=== PATIENT | female | born 1990 | race Caucasian/White ===

== ENCOUNTER 2017-10-06 11:27 | Inpatient (IN) | payer MEDICAID, OTHER ==
[~2017-10-06] VITALS: Ht 167.6 cm; Wt 50.0 kg
[2017-10-06] MEDS ORDERED: HYDROcodone/acetaminophen 10/325mg tab PO ONE (13:15)
[2017-10-06] MEDS ORDERED: ibuprofen tablet 400 MG TABLET PO ONE (13:15)
[2017-10-06] MEDS ORDERED: vancomycin/NS 1 GM ADD-VANTAGE 250 ML IV ONE (14:35)
[2017-10-06 15:19] LABS: BASOPHILS % (AUTO) 0.2 % (0-1); EOSINOPHILS # (AUTO) 0.4 X10'3 (0-0.9); EOSINOPHILS % (AUTO) 3.3 % (0-6); HEMATOCRIT 37.4 % (35.0-45.0); HEMOGLOBIN 12.6 g/dl (12.0-16.0); LYMPHOCYTES # (AUTO) 2.7 X10'3 (1.1-4.8); LYMPHOCYTES % (AUTO) 22.7 % (21-51); MEAN CORPUSCULAR HEMOGLOBIN 28.4 PG (27.0-31.0); MEAN CORPUSCULAR HGB CONC 33.7 % (33.0-36.5); MEAN CORPUSCULAR VOLUME 84.3 FL (78-98); MEAN PLATELET VOLUME 7.8 FL (7.4-10.4); MONOCYTES % (AUTO) 8.6 % (2-12); NEUTROPHILS # (AUTO) 7.8 X10'3 (1.8-7.7); NEUTROPHILS % (AUTO) 65.2 % (42-75); PLATELET COUNT 225 X10'3 (140-440); RED BLOOD COUNT 4.44 X10'6 (4.20-5.60); RED CELL DISTRIBUTION WIDTH 14.9 % (11.5-14.5)
[2017-10-06 15:37] LABS: ALANINE AMINOTRANSFERASE 19 U/L (12-78); ALBUMIN 3.4 G/DL (3.4-5.0); ALBUMIN/GLOBULIN RATIO 0.9 (1.1-1.5); ALKALINE PHOSPHATASE 63 IU/L (46-116); ANION GAP 6 (8-16); ASPARTATE AMINO TRANSFERASE 10 U/L (10-37); BILIRUBIN,TOTAL 0.1 MG/DL (0.1-1.0); BLOOD UREA NITROGEN 14 MG/DL (7-18); CALCIUM 8.7 MG/DL (8.5-10.1); CHLORIDE 101 MMOL/L (99-107); CREATININE 0.61 MG/DL (0.40-0.90); GLUCOSE 95 MG/DL (70-104); POTASSIUM 4.2 MMOL/L (3.5-5.1); SODIUM 137 MMOL/L (135-145); TOTAL CARBON DIOXIDE 29.6 MMOL/L (24-32); TOTAL PROTEIN 7.3 G/DL (6.4-8.2); eGFR > 90 ML/MIN
[2017-10-06] MEDS ORDERED: acetaminophen 650mg rectal suppository RC PRN (15:55)
[2017-10-06] MEDS ORDERED: acetaminophen 325mg tablet PO PRN ×2 (15:55)
[2017-10-06] MEDS ORDERED: HYDROmorphone inj. 0.5 MG/0.5 ML DISP.SYRIN IV PRN ×2 (15:55)
[2017-10-06] MEDS ORDERED: ondansetron/PF 4mg/2ml inj IV PRN (15:55)
[2017-10-06] MEDS ORDERED: diphenhydrAMINE 50 mg/ml inj IV PRN (15:55)
[2017-10-06] MEDS ORDERED: HYDROcodone/acetaminophen 5mg/325mg tablet PO PRN (15:55)
[2017-10-06] MEDS ORDERED: diphenhydrAMINE 25mg capsule PO PRN (15:55)
[2017-10-06] MEDS ORDERED: metoclopramide 5 mg/ml inj IV PRN (15:55)
[2017-10-06] MEDS ORDERED: morphine 4 MG/ML inj SYRINge IV PRN (15:55)
[2017-10-06] MEDS ORDERED: bisacodyl 10mg suppository rectal RC PRN (15:55)
[2017-10-06] MEDS ORDERED: mag hydrox/Alum hydrox/simeth 30ml oral suspension PO PRN (15:55)
[2017-10-06] MEDS ORDERED: magnesium hydroxide 30ml (MOM) UD suspension PO PRN (15:55)
[2017-10-06] MEDS ORDERED: tetanus & diphtheria toxoid (Td) vaccine 0.5ml IMVAC ONE (15:55)
[2017-10-06] MEDS ORDERED: TETanus/Pertussis (Acell)/Diphther VAC/PF (Tdap-Adult) 0.5ml syringe IMVAC ONE (16:10)
[2017-10-06] MEDS: ceFAZolin 1GM/D5W- ADD-VANTAGE 50 ML IV SCH (16:32)
[2017-10-06 17:24] LABS: MAGNESIUM 1.9 MG/DL (1.5-2.4)
[2017-10-06] MEDS ORDERED: NO HOME MEDS (17:28)
[2017-10-06] MEDS: HYDROcodone/acetaminophen 10/325mg tab PO PRN ×2 (17:31→21:31)
[2017-10-06] MEDS ORDERED: HYDROmorphone 1 mg/ml syringe IV PRN (17:50)
[2017-10-06 17:56] VITALS: BP 104/63
[2017-10-06] MEDS: nicotine 21mg patch - 24 hr TD SCH (19:50)
[2017-10-06] MEDS: morphine 4 MG/ML inj SYRINge IV PRN (19:52)
[2017-10-06] MEDS: docusate sod 100mg capsule PO SCH (19:52)
[2017-10-06] MEDS: heparin, porcine 5000 units/ml vial SQ SCH (19:53)
[2017-10-06 20:00] VITALS: BP 112/59
[2017-10-06] MEDS: HYDROmorphone 1 mg/ml syringe IV PRN (22:48)
[2017-10-07] VITALS: BP 127/79
[2017-10-07] MEDS: ceFAZolin 1GM/D5W- ADD-VANTAGE 50 ML IV SCH ×4 (00:37→23:57)
[2017-10-07] MEDS: HYDROcodone/acetaminophen 10/325mg tab PO PRN ×4 (02:04→16:41)
[2017-10-07 05:01] VITALS: BP 124/79
[2017-10-07] MEDS: HYDROmorphone 1 mg/ml syringe IV PRN ×3 (05:03→14:10)
[2017-10-07 05:47] LABS: BASOPHILS % (AUTO) 0.2 % (0-1); EOSINOPHILS # (AUTO) 0.3 X10'3 (0-0.9); EOSINOPHILS % (AUTO) 2.9 % (0-6); HEMATOCRIT 37.7 % (35.0-45.0); HEMOGLOBIN 12.6 g/dl (12.0-16.0); LYMPHOCYTES # (AUTO) 1.4 X10'3 (1.1-4.8); LYMPHOCYTES % (AUTO) 14.1 % (21-51); MEAN CORPUSCULAR HEMOGLOBIN 28.4 PG (27.0-31.0); MEAN CORPUSCULAR HGB CONC 33.5 % (33.0-36.5); MEAN CORPUSCULAR VOLUME 84.5 FL (78-98); MEAN PLATELET VOLUME 8.1 FL (7.4-10.4); MONOCYTES # (AUTO) 0.6 X10'3 (0-0.9); MONOCYTES % (AUTO) 6.1 % (2-12); NEUTROPHILS # (AUTO) 7.7 X10'3 (1.8-7.7); NEUTROPHILS % (AUTO) 76.7 % (42-75); PLATELET COUNT 209 X10'3 (140-440); RED BLOOD COUNT 4.46 X10'6 (4.20-5.60); WHITE BLOOD COUNT 10.1 X10'3 (4.5-11.0)
[2017-10-07 06:47] LABS: ALANINE AMINOTRANSFERASE 20 U/L (12-78); ALBUMIN 3.3 G/DL (3.4-5.0); ALBUMIN/GLOBULIN RATIO 0.8 (1.1-1.5); ALKALINE PHOSPHATASE 71 IU/L (46-116); ANION GAP 5 (8-16); ASPARTATE AMINO TRANSFERASE 12 U/L (10-37); BILIRUBIN,TOTAL 0.2 MG/DL (0.1-1.0); BLOOD UREA NITROGEN 11 MG/DL (7-18); BUN/CREATININE RATIO 21.6 (6.6-38.0); CALCIUM 8.7 MG/DL (8.5-10.1); CHLORIDE 101 MMOL/L (99-107); CREATININE 0.51 MG/DL (0.40-0.90); GLUCOSE 108 MG/DL (70-104); SODIUM 134 MMOL/L (135-145); TOTAL CARBON DIOXIDE 27.6 MMOL/L (24-32); TOTAL PROTEIN 7.3 G/DL (6.4-8.2); eGFR > 90 ML/MIN
[2017-10-07 07:00] VITALS: BP 117/66
[2017-10-07] MEDS: docusate sod 100mg capsule PO SCH ×2 (07:32→21:29)
[2017-10-07] MEDS: pantoprazole 40mg Tablet.DR PO SCH (07:33)
[2017-10-07] MEDS: heparin, porcine 5000 units/ml vial SQ SCH ×2 (07:34→21:30)
[2017-10-07] MEDS: nicotine 21mg patch - 24 hr TD SCH (07:34)
[2017-10-07 11:00] VITALS: BP 119/78
[2017-10-07] MEDS: morphine 4 MG/ML inj SYRINge IV PRN (16:56)
[2017-10-07] MEDS ORDERED: HYDROmorphone/NS 1 mg/ml CADD 50 ML IV SCH (17:55)
[2017-10-07] MEDS ORDERED: naloxone 0.4 mg/ml inj IV PRN (18:00)
[2017-10-07 19:00] VITALS: BP 112/55
[2017-10-07] MEDS: HYDROmorphone/NS 1 mg/ml CADD 50 ML IV SCH ×3 (19:34→23:00)
[2017-10-07] MEDS: lactobacillus rhamnosus 10,000 MMU CELLS/CAPSULE PO SCH (21:29)
[2017-10-08] VITALS: BP 129/74
[2017-10-08] MEDS: HYDROmorphone/NS 1 mg/ml CADD 50 ML IV SCH ×12 (01:00→23:00)
[2017-10-08 04:34] LABS: BASOPHILS % (AUTO) 0.2 % (0-1); EOSINOPHILS # (AUTO) 0.2 X10'3 (0-0.9); EOSINOPHILS % (AUTO) 1.3 % (0-6); HEMATOCRIT 44.8 % (35.0-45.0); HEMOGLOBIN 14.6 g/dl (12.0-16.0); LYMPHOCYTES # (AUTO) 1.7 X10'3 (1.1-4.8); MEAN CORPUSCULAR HEMOGLOBIN 27.6 PG (27.0-31.0); MEAN CORPUSCULAR HGB CONC 32.5 % (33.0-36.5); MEAN CORPUSCULAR VOLUME 84.9 FL (78-98); MEAN PLATELET VOLUME 7.4 FL (7.4-10.4); MONOCYTES % (AUTO) 8.1 % (2-12); NEUTROPHILS # (AUTO) 9.9 X10'3 (1.8-7.7); NEUTROPHILS % (AUTO) 77.4 % (42-75); PLATELET COUNT 225 X10'3 (140-440); RED BLOOD COUNT 5.28 X10'6 (4.20-5.60); RED CELL DISTRIBUTION WIDTH 14.6 % (11.5-14.5); WHITE BLOOD COUNT 12.8 X10'3 (4.5-11.0)
[2017-10-08 05:05] LABS: ALANINE AMINOTRANSFERASE 25 U/L (12-78); ALBUMIN 3.6 G/DL (3.4-5.0); ALBUMIN/GLOBULIN RATIO 0.8 (1.1-1.5); ALKALINE PHOSPHATASE 81 IU/L (46-116); ANION GAP 5 (8-16); ASPARTATE AMINO TRANSFERASE 11 U/L (10-37); BILIRUBIN,TOTAL 0.2 MG/DL (0.1-1.0); BLOOD UREA NITROGEN 6 MG/DL (7-18); BUN/CREATININE RATIO 9.1 (6.6-38.0); CALCIUM 9.1 MG/DL (8.5-10.1); CHLORIDE 98 MMOL/L (99-107); CREATININE 0.66 MG/DL (0.40-0.90); GLUCOSE 114 MG/DL (70-104); POTASSIUM 3.9 MMOL/L (3.5-5.1); SODIUM 132 MMOL/L (135-145); TOTAL CARBON DIOXIDE 28.6 MMOL/L (24-32); TOTAL PROTEIN 8.2 G/DL (6.4-8.2); eGFR > 90 ML/MIN
[2017-10-08] MEDS ORDERED: normal saline 1000ml 1,000 ML IV SCH (06:50)
[2017-10-08 07:23] VITALS: BP 116/66
[2017-10-08] MEDS: ceFAZolin 1GM/D5W- ADD-VANTAGE 50 ML IV SCH (08:36)
[2017-10-08] MEDS: nicotine 21mg patch - 24 hr TD SCH (08:36)
[2017-10-08] MEDS: heparin, porcine 5000 units/ml vial SQ SCH ×2 (08:37→19:19)
[2017-10-08] MEDS: docusate sod 100mg capsule PO SCH ×2 (08:37→19:18)
[2017-10-08] MEDS: lactobacillus rhamnosus 10,000 MMU CELLS/CAPSULE PO SCH ×2 (08:37→19:18)
[2017-10-08] MEDS: pantoprazole 40mg Tablet.DR PO SCH (08:39)
[2017-10-08] MEDS ORDERED: vancomycin/NS 1 GM ADD-VANTAGE 250 ML IV SCH (11:50)
[2017-10-08] MEDS: VANCOMYCIN 750MG IV in NS 250 ML IV SCH ×2 (12:19→19:17)
[2017-10-08 12:30] VITALS: BP 105/62
[2017-10-08 14:57] VITALS: BP 105/62
[2017-10-08 18:00] VITALS: BP 114/71
[2017-10-09] VITALS: BP 111/61
[2017-10-09] MEDS: HYDROmorphone/NS 1 mg/ml CADD 50 ML IV SCH ×12 (01:00→23:00)
[2017-10-09] MEDS: VANCOMYCIN 750MG IV in NS 250 ML IV SCH (04:16)
[2017-10-09 05:52] LABS: BASOPHILS % (AUTO) 0.3 % (0-1); EOSINOPHILS # (AUTO) 0.3 X10'3 (0-0.9); EOSINOPHILS % (AUTO) 2.6 % (0-6); HEMATOCRIT 40.8 % (35.0-45.0); HEMOGLOBIN 13.4 g/dl (12.0-16.0); LYMPHOCYTES # (AUTO) 2.2 X10'3 (1.1-4.8); LYMPHOCYTES % (AUTO) 18.7 % (21-51); MEAN CORPUSCULAR HGB CONC 32.9 % (33.0-36.5); MEAN PLATELET VOLUME 7.8 FL (7.4-10.4); MONOCYTES # (AUTO) 1.1 X10'3 (0-0.9); MONOCYTES % (AUTO) 9.8 % (2-12); NEUTROPHILS % (AUTO) 68.6 % (42-75); PLATELET COUNT 246 X10'3 (140-440); RED CELL DISTRIBUTION WIDTH 14.6 % (11.5-14.5); WHITE BLOOD COUNT 11.6 X10'3 (4.5-11.0)
[2017-10-09 06:03] LABS: ANION GAP 5 (8-16); BLOOD UREA NITROGEN 9 MG/DL (7-18); BUN/CREATININE RATIO 15.8 (6.6-38.0); CHLORIDE 97 MMOL/L (99-107); CREATININE 0.57 MG/DL (0.40-0.90); GLUCOSE 100 MG/DL (70-104); POTASSIUM 4.3 MMOL/L (3.5-5.1); SODIUM 133 MMOL/L (135-145); TOTAL CARBON DIOXIDE 30.7 MMOL/L (24-32); eGFR > 90 ML/MIN
[2017-10-09 06:04] LABS: ALANINE AMINOTRANSFERASE 53 U/L (12-78); ALBUMIN 3.2 G/DL (3.4-5.0); ALBUMIN/GLOBULIN RATIO 0.7 (1.1-1.5); ALKALINE PHOSPHATASE 89 IU/L (46-116); ASPARTATE AMINO TRANSFERASE 32 U/L (10-37); BILIRUBIN,TOTAL 0.3 MG/DL (0.1-1.0); TOTAL PROTEIN 7.9 G/DL (6.4-8.2)
[2017-10-09 07:00] VITALS: BP 107/61
[2017-10-09] MEDS: nicotine 21mg patch - 24 hr TD SCH (08:56)
[2017-10-09] MEDS: docusate sod 100mg capsule PO SCH ×2 (08:57→20:41)
[2017-10-09] MEDS: lactobacillus rhamnosus 10,000 MMU CELLS/CAPSULE PO SCH ×2 (08:57→20:42)
[2017-10-09] MEDS: heparin, porcine 5000 units/ml vial SQ SCH ×2 (08:57→20:42)
[2017-10-09] MEDS: pantoprazole 40mg Tablet.DR PO SCH (09:00)
[2017-10-09 11:00] VITALS: BP 114/64
[2017-10-09] MEDS ORDERED: VANCOMYCIN LEVEL IV ONE (11:30)
[2017-10-09] MEDS: vancomycin/NS 1 GM ADD-VANTAGE 250 ML IV SCH ×2 (13:13→20:47)
[2017-10-09 18:00] VITALS: BP 115/73
[2017-10-09] MEDS ORDERED: ketorolac tromethamine 15mg/ml inj. IV ONE (22:35)
[2017-10-10] VITALS: BP 111/63
[2017-10-10] MEDS: HYDROmorphone/NS 1 mg/ml CADD 50 ML IV SCH ×12 (01:00→23:00)
[2017-10-10] MEDS: temazepam 15mg capsule PO PRN ×2 (01:17→23:20)
[2017-10-10] MEDS: vancomycin/NS 1 GM ADD-VANTAGE 250 ML IV SCH ×2 (05:00→13:14)
[2017-10-10 05:33] LABS: BASOPHILS % (AUTO) 0.1 % (0-1); EOSINOPHILS # (AUTO) 0.3 X10'3 (0-0.9); EOSINOPHILS % (AUTO) 4.6 % (0-6); HEMATOCRIT 36.2 % (35.0-45.0); HEMOGLOBIN 12.1 g/dl (12.0-16.0); LYMPHOCYTES # (AUTO) 2.4 X10'3 (1.1-4.8); LYMPHOCYTES % (AUTO) 31.9 % (21-51); MEAN CORPUSCULAR HEMOGLOBIN 28.3 PG (27.0-31.0); MEAN CORPUSCULAR HGB CONC 33.4 % (33.0-36.5); MEAN CORPUSCULAR VOLUME 84.7 FL (78-98); MEAN PLATELET VOLUME 7.3 FL (7.4-10.4); MONOCYTES # (AUTO) 0.8 X10'3 (0-0.9); MONOCYTES % (AUTO) 10.3 % (2-12); NEUTROPHILS % (AUTO) 53.1 % (42-75); PLATELET COUNT 237 X10'3 (140-440); RED BLOOD COUNT 4.27 X10'6 (4.20-5.60); RED CELL DISTRIBUTION WIDTH 14.4 % (11.5-14.5); WHITE BLOOD COUNT 7.6 X10'3 (4.5-11.0)
[2017-10-10 05:58] LABS: ALANINE AMINOTRANSFERASE 97 U/L (12-78); ALBUMIN 2.9 G/DL (3.4-5.0); ALBUMIN/GLOBULIN RATIO 0.7 (1.1-1.5); ALKALINE PHOSPHATASE 93 IU/L (46-116); ANION GAP 6 (8-16); ASPARTATE AMINO TRANSFERASE 53 U/L (10-37); BILIRUBIN,TOTAL 0.1 MG/DL (0.1-1.0); BLOOD UREA NITROGEN 16 MG/DL (7-18); CALCIUM 9.3 MG/DL (8.5-10.1); CHLORIDE 98 MMOL/L (99-107); CREATININE 0.64 MG/DL (0.40-0.90); GLUCOSE 96 MG/DL (70-104); POTASSIUM 4.6 MMOL/L (3.5-5.1); SODIUM 134 MMOL/L (135-145); TOTAL CARBON DIOXIDE 29.9 MMOL/L (24-32); eGFR > 90 ML/MIN
[2017-10-10 08:06] VITALS: BP 106/53
[2017-10-10] MEDS: pantoprazole 40mg Tablet.DR PO SCH (08:16)
[2017-10-10] MEDS: nicotine 21mg patch - 24 hr TD SCH (08:16)
[2017-10-10] MEDS: docusate sod 100mg capsule PO SCH ×2 (08:16→19:07)
[2017-10-10] MEDS: lactobacillus rhamnosus 10,000 MMU CELLS/CAPSULE PO SCH ×2 (08:16→19:06)
[2017-10-10] MEDS: heparin, porcine 5000 units/ml vial SQ SCH ×2 (08:17→19:06)
[2017-10-10] MEDS: HYDROcodone/acetaminophen 10/325mg tab PO PRN ×4 (10:36→23:20)
[2017-10-10] MEDS ORDERED: VANCOMYCIN LEVEL IV NR (12:30)
[2017-10-10] MEDS: benzocaine (Anbesol) 12ml bottle MM PRN ×2 (13:14→19:06)
[2017-10-10] MEDS: CADD PCA waste documentation MC SCH (14:51)
[2017-10-10 18:00] VITALS: BP 126/80
[2017-10-10] MEDS: vancomycin inj 1,250 MG in normal saline 250ml IV soln 250 ML IV SCH (20:41)
[2017-10-11] VITALS: BP 109/66
[2017-10-11] MEDS: HYDROmorphone/NS 1 mg/ml CADD 50 ML IV SCH ×5 (01:00→09:00)
[2017-10-11] MEDS: vancomycin inj 1,250 MG in normal saline 250ml IV soln 250 ML IV SCH ×2 (04:43→13:34)
[2017-10-11 06:49] LABS: BASOPHILS % (AUTO) 0.6 % (0-1); EOSINOPHILS # (AUTO) 0.3 X10'3 (0-0.9); EOSINOPHILS % (AUTO) 4.9 % (0-6); HEMATOCRIT 34.6 % (35.0-45.0); HEMOGLOBIN 11.7 g/dl (12.0-16.0); LYMPHOCYTES # (AUTO) 1.7 X10'3 (1.1-4.8); MEAN CORPUSCULAR HEMOGLOBIN 28.3 PG (27.0-31.0); MEAN CORPUSCULAR HGB CONC 33.8 % (33.0-36.5); MEAN PLATELET VOLUME 7.1 FL (7.4-10.4); MONOCYTES # (AUTO) 0.6 X10'3 (0-0.9); MONOCYTES % (AUTO) 11.4 % (2-12); NEUTROPHILS % (AUTO) 53.1 % (42-75); PLATELET COUNT 264 X10'3 (140-440); RED BLOOD COUNT 4.12 X10'6 (4.20-5.60); RED CELL DISTRIBUTION WIDTH 14.1 % (11.5-14.5); WHITE BLOOD COUNT 5.6 X10'3 (4.5-11.0)
[2017-10-11 07:14] LABS: ALANINE AMINOTRANSFERASE 84 U/L (12-78); ALBUMIN 2.8 G/DL (3.4-5.0); ALBUMIN/GLOBULIN RATIO 0.7 (1.1-1.5); ALKALINE PHOSPHATASE 88 IU/L (46-116); ANION GAP 6 (8-16); ASPARTATE AMINO TRANSFERASE 37 U/L (10-37); BILIRUBIN,TOTAL 0.2 MG/DL (0.1-1.0); BLOOD UREA NITROGEN 13 MG/DL (7-18); BUN/CREATININE RATIO 22.4 (6.6-38.0); CALCIUM 8.7 MG/DL (8.5-10.1); CHLORIDE 101 MMOL/L (99-107); CREATININE 0.58 MG/DL (0.40-0.90); GLUCOSE 91 MG/DL (70-104); POTASSIUM 4.1 MMOL/L (3.5-5.1); SODIUM 136 MMOL/L (135-145); TOTAL CARBON DIOXIDE 29.5 MMOL/L (24-32); TOTAL PROTEIN 6.9 G/DL (6.4-8.2); eGFR > 90 ML/MIN
[2017-10-11 07:19] VITALS: BP 105/54
[2017-10-11] MEDS: lactobacillus rhamnosus 10,000 MMU CELLS/CAPSULE PO SCH (09:00)
[2017-10-11] MEDS: docusate sod 100mg capsule PO SCH (09:00)
[2017-10-11] MEDS: pantoprazole 40mg Tablet.DR PO SCH (09:00)
[2017-10-11] MEDS: heparin, porcine 5000 units/ml vial SQ SCH (09:01)
[2017-10-11] MEDS: nicotine 21mg patch - 24 hr TD SCH (09:01)
[2017-10-11] MEDS: HYDROcodone/acetaminophen 10/325mg tab PO PRN ×2 (10:09→12:22)
[2017-10-11] MEDS ORDERED: HYDROcodone/acetaminophen 10/325mg tab PO PRN (10:35)
[2017-10-11] MEDS: CADD PCA waste documentation MC SCH (10:49)
[2017-10-11 12:35] VITALS: BP 110/68
[2017-10-11] MEDS ORDERED: HYDR-565 PO (13:15)
[2017-10-11] MEDS ORDERED: CLIN150C2 PO (13:15)
[2017-10-11] MEDS ORDERED: VANCOMYCIN LEVEL IV NR (20:30)
== END 2017-10-11 16:40 | disposition home or self-care (01) | DRG 383 ==
LOC: ER 11:27 → ED HOLD 15:54 → SUR 3N 17:52
PROVIDERS: ADMIT Family Medicine; ATTEND Family Medicine
PROC: 0JBQ0ZZ Excision of Right Foot Subcutaneous Tissue and Fascia, Open Approach (ICD-10-PCS; principal; 2017-10-10)
DX: L03.116 Cellulitis of left lower limb (principal); L02.611 Cutaneous abscess of right foot; L02.612 Cutaneous abscess of left foot; L03.031 Cellulitis of right toe; F17.210 Nicotine dependence, cigarettes, uncomplicated; Z56.0 Unemployment, unspecified; Z79.899 Other long term (current) drug therapy
CPT/HCPCS: 36415; 73630; 73700; 80053; 80202; 83735; 85025; 87070; 90715; 96365; 96366; 97116; 97161; 99285; A6223; A6266; A6449; J0690; J1170; J1644; J1885; J2270; J2405; J3370; J7030